=== PATIENT | female | born 1990 | race Caucasian/White ===

== ENCOUNTER 2018-08-09 23:31 | Emergency (ER) | payer SELFPAY ==
[2018-08-09] MEDS ORDERED: RINGERS SOLUTION,LACTATED 1,000 ML IV ONE (23:39)
[2018-08-09] MEDS ORDERED: HYDROMORPHONE HCL INJ/PF 2 MG/ML AMPULE IV PRN (23:39)
[2018-08-09] MEDS ORDERED: METOCLOPRAMIDE HCL INJ/PF 10 MG/2 ML SDV IV ONE (23:39)
--- NOTE | 2018-08-09 23:44 | ER Document Report ---
ED General - General Stated Complaint: EPIGASTRIC PAIN Time Seen by Provider: 08/09/18 23:39 Notes: Patient is a 27-year-old female without chronic medical problems, only prior surgical history is a 2 years ago who presents with an abrupt onset of severe generalized abdominal pain most localized to the epigastrium that started at approximately 10 PM tonight. Patient notes associated nausea and vomiting. She has no history of similar pain in the past. Nothing improves or worsens that pain. She states that she last ate approximately 5 hours prior to the onset of the pain without any discomfort of any kind. She denies any vaginal bleeding, vaginal discharge, no dysuria. Pain is described as a severe, throbbing, stabbing pain. - Related Data Allergies/Adverse Reactions: No Known Allergies Allergy (Verified 08/10/18 00:48) Past Medical History - General Information source: Patient - Social History Smoking Status: Never Smoker Frequency of alcohol use: None Drug Abuse: None Lives with: Spouse/Significant other Family History: Reviewed & Not Pertinent Review of Systems - Review of Systems Notes: Constitutional: Negative for fever. HENT: Negative for sore throat. Eyes: Negative for visual changes. Cardiovascular: Negative for chest pain. Respiratory: Negative for shortness of breath. Gastrointestinal: Positive for abdominal pain and vomiting Genitourinary: Negative for dysuria. Musculoskeletal: Negative for back pain. Skin: Negative for rash. Neurological: Negative for headaches, weakness or numbness. 10 point ROS negative except as marked above and in HPI. Physical Exam - Vital signs Vitals: Temp Pulse Resp BP Pulse Ox 98.0 F 88 20 132/93 H 96 08/09/18 23:35 08/09/18 23:35 08/09/18 23:35 08/09/18 23:35 08/09/18 23:35 Interpretation: Hypertensive, Tachypneic Notes: PHYSICAL EXAMINATION: GENERAL: Appears very uncomfortable, curled up in a ball and writhing in pain HEAD: Atraumatic, normocephalic. EYES: Pupils equal round and reactive to light, extraocular movements intact, sclera anicteric, conjunctiva are normal. ENT: nares patent, oropharynx clear without exudates. Moderately dry mucous membranes. NECK: Normal range of motion, supple without lymphadenopathy LUNGS: Breath sounds clear to auscultation bilaterally and equal. No wheezes rales or rhonchi. HEART: Regular rate and rhythm without murmurs ABDOMEN: Mild rigidity in the upper abdomen, mild diffuse tenderness most localized to the epigastrium, normoactive bowel sounds. EXTREMITIES: Normal range of motion, no pitting or edema. No cyanosis. NEUROLOGICAL: No focal neurological deficits. Moves all extremities spontaneously and on command. PSYCH: Moderately anxious SKIN: Warm, Dry, normal turgor, no rashes or lesions noted. Course - Re-evaluation Re-evalutation: 08/09/18 23:43 Patient presents with a somewhat concerning exam and history. She does have some diffuse rigidity and guarding in the upper abdomen although is globally tender. The patient does appear very unwell. Differential diagnosis includes acute pancreatitis, acute biliary pathology, acute bowel perforation. Will proceed with labs, given degree of pain will proceed directly to CT of the abdomen and pelvis with IV contrast as well as pain control. 08/10/18 01:30 CT abdomen pelvis is completely unremarkable with exception of a distended left colon. The patient's pain has now completely resolved. Her labs otherwise unremarkable. Repeat abdominal exam remains completely benign. At this point it appears that the patient had likely an acute colonic spasm with associated stool distention of her left hemicolon. This is based on otherwise completely reassuring workup and now having no pain of any kind as well as no pain on abdo joseph reassessment. I have advised MiraLAX at home. At this time will discharge with return precautions and follow-up recommendations. Verbal discharge instructions given a the bedside and opportunity for questions given. Medication warnings reviewed. Patient is in agreement with this plan and has verbalized understanding of return precautions and the need for primary care follow-up in the next 24-72 hours. - Vital Signs Vital signs: Temp Pulse Resp BP Pulse Ox 98.0 F 88 20 132/93 H 96 08/09/18 23:35 08/09/18 23:35 08/09/18 23:35 08/09/18 23:35 08/09/18 23:35 - Laboratory Result Diagrams: 08/10/18 00:00 08/10/18 00:00 - Diagnostic Test Radiology reviewed: Reports reviewed Discharge - Discharge Clinical Impression: Generalized abdominal pain Nausea and vomiting Qualifiers: Vomiting type: unspecified Vomiting Intractability: non-intractable Qualified Code(s): R11.2 - Nausea with vomiting, unspecified Constipation Qualifiers: Constipation type: unspecified constipation type Qualified Code(s): K59.00 - Constipation, unspecified Condition: Good Disposition: HOME, SELF-CARE Additional Instructions: You have been seen in the Emergency Department (ED) for abdominal pain. Your labs and CT scan are otherwise completely unremarkable today with the exception of significant constipation located in your left colon. I advised 1 capful of MiraLAX twice daily for the next 2 days to help reduce this constipation. Please follow up with your doctor as soon as possible regarding today's emergent visit and the symptoms that are bothering you. Return to the ED if your abdominal pain worsens or fails to improve, you develop bloody vomiting, bloody diarrhea, you are unable to tolerate fluids due to vomiting, fever greater than 101, or other symptoms that concern you.
[2018-08-10 00:11] LABS: ABSOLUTE LYMPHOCYTES (AUTO) 1.2 10^3/uL (0.5-4.7); ABSOLUTE MONOCYTES (AUTO) 0.5 10^3/uL (0.1-1.4); ABSOLUTE NEUT (AUTO) 5.8 10^3/uL (1.7-8.2); BASOPHILS % (AUTO) 0.3 % (0-2); EOSINOPHILS % (AUTO) 0.6 % (0-6); HEMATOCRIT 39.7 % (36.0-47.0); HEMOGLOBIN 13.5 g/dL (12.0-15.5); LYMPHOCYTES % (AUTO) 16.3 % (13-45); MEAN CORPUSCULAR HEMOGLOBIN 28.8 pg (27.0-33.4); MEAN CORPUSCULAR HGB CONC 34.1 g/dL (32.0-36.0); MEAN CORPUSCULAR VOLUME 84 fl (80-97); PLATELET COUNT 158 10^3/uL (150-450); RED CELL DISTRIBUTION WIDTH 12.6 % (11.5-14.0); SEGMENTED NEUTROPHILS % (AUTO) 75.8 % (42-78); TOTAL CELLS COUNTED % (AUTO) 100 %; WHITE BLOOD COUNT 7.7 10^3/uL (4.0-10.5)
[2018-08-10 00:31] LABS: ALANINE AMINOTRANSFERASE 20 U/L (9-52); ALBUMIN 4.3 g/dL (3.5-5.0); ALKALINE PHOSPHATASE 63 U/L (38-126); ANION GAP 5 (5-19); ASPARTATE AMINO TRANSFERASE 28 U/L (14-36); BILIRUBIN,DIRECT 0.2 mg/dL (0.0-0.4); BILIRUBIN,TOTAL 0.4 mg/dL (0.2-1.3); BLOOD UREA NITROGEN 19 mg/dL (7-20); CARBON DIOXIDE 26 mmol/L (22-30); CHLORIDE 107 mmol/L (98-107); GLUCOSE 104 mg/dL (75-110); LIPASE 100.8 U/L (23-300); SODIUM 137.9 mmol/L (137-145); TOTAL PROTEIN 7.1 g/dL (6.3-8.2)
[2018-08-10 00:33] LABS: POTASSIUM 3.9 mmol/L (3.6-5.0)
--- NOTE | 2018-08-10 01:08 | RADIOLOGY REPORT (SQ) ---
EXAM DESCRIPTION: CT ABDOMEN PELVIS WITH IV CONTRAST COMPLETED DATE/TME: 08/09/2018 23:40 CLINICAL HISTORY: 27 years, Female, generalized abdominal pain, guarding COMPARISON: None. TECHNIQUE: 372 Images stored on PACS. All CT scanners at this facility use dose modulation, iterative reconstruction, and/or weight based dosing when appropriate to reduce radiation dose to as low as reasonably achievable (ALARA). [facility]: Dose Right [facility]: CareDose [facility]: Dose Right [facility]: Teradose 4D [facility]: Smart Technologies LIMITATIONS: None. FINDINGS: Limited evaluation of the lung bases is unremarkable. Osseous structures are grossly intact. The liver, spleen, adrenal glands, pancreas, kidneys are unremarkable. The gallbladder is present. Large amount of stool in the colon. Normal appendix. IUD in place. No gross evidence for bowel obstruction. No free air or free fluid. Follicular change to the ovaries bilaterally. IMPRESSION: Abundant stool in the colon. Normal appendix. IUD in place TECHNICAL DOCUMENTATION: Quality ID # [id number]: Final reports with documentation of one or more dose reduction techniques (e.g., Automated exposure control, adjustment of the mA and/or kV according to patient size, use of iterative reconstruction technique) copyright 2010 [employer]- All Rights Reserved
[2018-08-10 01:30] VITALS: BP 123/58
== END 2018-08-10 01:57 | disposition home or self-care (01) ==
LOC: ER 23:31
DX: K59.00 Constipation, unspecified (principal); R10.84 Generalized abdominal pain; R11.2 Nausea with vomiting, unspecified
CPT/HCPCS: 99284; 96361; 96374; 96375; 36415; 83605; 83690; 84703; 85025; 80053; 74177; J2765; J1170; J7120

== ENCOUNTER 2019-08-25 15:38 | Emergency (ER) | payer MEDICAID ==
[2019-08-25] MEDS ORDERED: NORMAL SALINE 1000 ML 1,000 ML IV ONE (16:58)
--- NOTE | 2019-08-25 16:58 | ER Document Report ---
ED Medical Screen (RME) - General Chief Complaint: Nausea/Vomiting Stated Complaint: FLU LIKE SYMPTOMS Time Seen by Provider: 08/25/19 16:49 Notes: HPI: 28-year-old female who is 24 weeks presenting to the emergency department complaining of 3 to 4 days of fever, dry cough, significant sinus congestion, mild sore throat. States she began having vomiting yesterday and continues with nausea today. Patient has been complaining of some Calos Stahl type contractions but has not had vaginal discharge or bleeding. Patient states that she was trying to see her OB about symptoms but was unable to get into the office today. Denies abdominal pain otherwise. Patient states that she does have a facial headache. I have greeted and performed a rapid initial assessment of this patient. A comprehensive ED assessment and evaluation of the patient, analysis of test results and completion of the medical decision making process will be conducted by additional ED providers PHYSICAL EXAMINATION: GENERAL: Well-appearing, well-nourished and in mild acute distress. HEAD: Atraumatic, normocephalic. EYES: sclera anicteric, conjunctiva are normal. ENT: Moist mucous membranes. Mild pharyngeal erythema without exudate. Mild tenderness over the bilateral maxillary sinuses without erythema. Clear rhinorrhea NECK: Normal range of motion LUNGS: Normal work of breathing, lung sounds are clear to auscultation HEART: 2+ radial pulses bilaterally, tachycardic ABD: limited by positioning for exam in triage. No abdominal pain on palpation. Gravid uterus palpable EXTREMITIES: no pitting or edema. No cyanosis. NEUROLOGICAL: No focal neurological deficits. Moves all extremities spontaneously and on command. PSYCH: Normal mood, normal affect. SKIN: Warm, Dry, normal turgor, no rashes or lesions noted. TRAVEL OUTSIDE OF THE [place] IN LAST 30 DAYS: No - Related Data Allergies/Adverse Reactions: No Known Allergies Allergy (Verified 08/10/18 00:48) Home Medications: Past Medical History - Social History Chew tobacco use (# tins/day): No Frequency of alcohol use: None Drug Abuse: None Renal/ Medical History: Denies: Hx Peritoneal Dialysis Past Surgical History: Reports: Hx Section Physical Exam - Vital signs Vitals: Temp Pulse Resp BP Pulse Ox 98.5 F 126 H 20 105/63 100 08/25/19 15:45 08/25/19 15:45 08/25/19 15:45 08/25/19 15:45 08/25/19 15:45 Course - Vital Signs Vital signs: Temp Pulse Resp BP Pulse Ox 98.5 F 126 H 20 105/63 100 08/25/19 15:45 08/25/19 15:45 08/25/19 15:45 08/25/19 15:45 08/25/19 15:45
[2019-08-25] MEDS ORDERED: METOCLOPRAMIDE HCL INJ/PF 10 MG/2 ML SDV IV ONE (16:59)
--- NOTE | 2019-08-25 17:58 | ER Document Report ---
ED GI/ - General Chief Complaint: Nausea/Vomiting Stated Complaint: FLU LIKE SYMPTOMS Time Seen by Provider: 08/25/19 16:49 Primary Care Provider: RHEA WADE MD [Primary Care Provider] - Follow up as needed Mode of Arrival: Ambulatory Information source: Patient Notes: Patient has had a 2-day history of nausea and vomiting. Patient is 24 weeks . Also has developed fever and a sore throat with a runny nose in the past 36 hours. Denies any diarrhea. Patient has complained of some uterine cramps similar to Calos Stahl. Patient states there is been no vaginal bleeding or any vaginal discharge or water break at this time. Patient is a healthy 4 para 4 AB 1 subject. Denies having flu vaccine this season. Denies any known exposure to anyone with the flu. There is been no hematemesis coffee-ground emesis. TRAVEL OUTSIDE OF THE [place] IN LAST 30 DAYS: No - HPI Patient complains to provider of: , Vomiting, Other - Mild cramping abdominal pain. Onset: Other - A few days ago Timing/Duration: Gradual Quality of pain: Achy Severity at maximum: Moderate Severity in ED: Moderate Pain Level: 3 Context: , Other - Illness with fever nausea and vomiting body aches sore throat Vaginal bleeding (Compared to normal period): None : 4 Para: 4 Abortions: 1 vitamins taken: Yes Associated symptoms: Nausea, Vomiting Exacerbated by: Food Similar symptoms previously: No Recently seen / treated by doctor: No - Related Data Allergies/Adverse Reactions: No Known Allergies Allergy (Verified 08/10/18 00:48) Home Medications: Past Medical History - Social History Smoking Status: Never Smoker Cigarette use (# per day): No Chew tobacco use (# tins/day): No Frequency of alcohol use: None Drug Abuse: None Lives with: Family Family History: Reviewed & Not Pertinent Patient has suicidal ideation: No Patient has homicidal ideation: No Renal/ Medical History: Denies: Hx Peritoneal Dialysis Past Surgical History: Reports: Hx Section Review of Systems - Review of Systems Constitutional: Chills, Fever, Weakness EENT: Sinus pressure Cardiovascular: Lightheaded Respiratory: No symptoms reported Gastrointestinal: Vomiting Musculoskeletal: Other - Body aches -: Yes All other systems reviewed and negative Physical Exam - Vital signs Vitals: Temp Pulse Resp BP Pulse Ox 98.5 F 126 H 20 105/63 100 08/25/19 15:45 08/25/19 15:45 08/25/19 15:45 08/25/19 15:45 08/25/19 15:45 Interpretation: Normal - General General appearance: Appears well, Alert - HEENT Head: Normocephalic, Atraumatic Eyes: Normal Pupils: PERRL Tympanic membrane: Serous effusion Sinus: Maxillary, Tenderness Nasal: Clear rhinorrhea Pharynx: Erythema Neck: Normal - Respiratory Respiratory status: No respiratory distress Chest status: Nontender Breath sounds: Normal Chest palpation: Normal - Cardiovascular Rhythm: Regular Heart sounds: Normal auscultation Murmur: No - Abdominal Inspection: Normal Distension: No distension Bowel sounds: Normal Tenderness: Nontender Organomegaly: No organomegaly, Other - Gravid uterus, no contractions palpated on exam. - Back Back: Normal, Nontender - Extremities General upper extremity: Normal inspection, Nontender, Normal color, Normal ROM, Normal temperature General lower extremity: Normal inspection, Nontender, Normal color, Normal ROM, Normal temperature, Normal weight bearing. No: Tracy's sign - Neurological Neuro grossly intact: Yes Cognition: Normal Orientation: AAOx4 Sabrina Coma Scale Eye Opening: Spontaneous Sabrina Coma Scale Verbal: Oriented Sabrina Coma Scale Motor: Obeys Commands [place] Coma Scale Total: 15 Speech: Normal Motor strength normal: LUE, RUE, LLE, RLE Sensory: Normal - Psychological Associated symptoms: Normal affect, Normal mood - Skin Skin Temperature: Warm Skin Moisture: Dry Skin Color: Normal Course - Re-evaluation Re-evalutation: 08/25/19 20:08 Patient resting comfortably, and showing no signs of distress at this time skin color is pink and vibrant. Has received 2 L of IV fluids and is taking p.o. well at this time. And patient had drank apple juice and ate some crackers. Patient denies any urinary symptoms although there is some white blood cells noted in the urinalysis. We will not treat as a urinary tract infection inasmuch as she has no symptoms. Will begin on antibiotics because of sinusitis noted on exam. Patient does not have influenza a or B. heart tones were within normal limits and patient no longer has any uterine cramps at this time. It is medically stable and ready for discharge. - Vital Signs Vital signs: Temp Pulse Resp BP Pulse Ox 98.5 F 126 H 20 105/63 100 08/25/19 15:45 08/25/19 15:45 08/25/19 15:45 08/25/19 15:45 08/25/19 15:45 - Laboratory Result Diagrams: 08/25/19 18:00 08/25/19 18:00 Laboratory results interpreted by me: 08/25/19 08/25/19 08/25/19 17:35 18:00 18:00 WBC 12.6 H Lymph % (Auto) 8.5 L Absolute Neuts (auto) 10.5 H Seg Neutrophils % 83.5 H Sodium 134.7 L Creatinine 0.49 L Urine Protein 100 H Urine Ketones 80 H Urine Urobilinogen 2.0 H Ur Leukocyte Esterase MODERATE H Urine Ascorbic Acid 40 H Discharge - Discharge Clinical Impression: Upper respiratory infection of multiple sites, Sinusitis chronic, frontal Condition: Stable Disposition: HOME, SELF-CARE Instructions: Acetaminophen, Upper Respiratory Illness ([facility]), Fever ([facility]) Additional Instructions: Sinusitis You have sinusitis, an infection of the sinus cavities of the face. The sinuses are air-filled chambers which open into the inside of the nose. Bacteria and pus fill a sinus, causing pain, drainage, and fever. Sinusitis is treated with antibiotics. Often, expectorants (to thin the sinus mucous) or decongestants (to reduce swelling) are prescribed as well. Healing requires seven to 10 days. Avoid chemical fumes, pollens, dusts, and smoke (especially cigarette smoke). Keep the air humidified in your bedroom and work area and take plenty of liquids by mouth. This condition can be serious if the infection spreads. If your symptoms worsen, or if you develop severe headache, high fever, stiff neck, or a rash, you must call the doctor or return for re-evaluation. You are . care is best started as early in as possible. If you're unsure about continuing this , you should discuss this with your physician or with bridal consultant at [facility]. You should take only medications approved by your physician. Acetaminophen can safely be taken for minor pains. As a rule, medication for chronic con ditions such as asthma or seizures can safely be continued. You should discuss with the physician every medicine you take. Any regular exercise program can be continued. Talk to your physician, however, before engaging in competitive or demanding sports. Alcohol, smoking, and "street drugs" are dangerous to your baby. Cocaine is especially dangerous. Don't use any illicit drugs! Follow-up with OB operations manager station within 1 to 2 days. Prescriptions: Cephalexin Monohydrate [Keflex 500 mg Capsule] 500 mg PO Q8H 7 Days #21 capsule Ondansetron [Zofran Odt 4 mg Tablet] 1 - 2 tab PO Q6H #15 tab.rapdis Referrals: RHEA WADE MD [Primary Care Provider] - Follow up as needed
[2019-08-25 18:07] LABS: APPEARANCE,URINE SLIGHTLY-CLOUDY; BILIRUBIN,URINE NEGATIVE (NEGATIVE); COLOR,URINE AMBER; GLUCOSE, URINE NEGATIVE (NEGATIVE); KETONES,URINE 80 mg/dL (NEGATIVE); LEUKOCYTE ESTERASE,URINE MODERATE (NEGATIVE); NITRITE,URINE NEGATIVE (NEGATIVE); PROTEIN,URINE 100 mg/dL (NEGATIVE); URINE SPECIFIC GRAVITY 1.029
[2019-08-25] MEDS ORDERED: RINGERS SOLUTION,LACTATED 1,000 ML IV ONE (18:18)
[2019-08-25 18:37] LABS: A TYPE INFLUENZA AG NEGATIVE (NEGATIVE); B INFLUENZA AG NEGATIVE (NEGATIVE)
[2019-08-25 18:38] LABS: ABSOLUTE LYMPHOCYTES (AUTO) 1.1 10^3/uL (0.5-4.7); ABSOLUTE MONOCYTES (AUTO) 0.9 10^3/uL (0.1-1.4); ABSOLUTE NEUT (AUTO) 10.5 10^3/uL (1.7-8.2); BASOPHILS % (AUTO) 0.3 % (0-2); EOSINOPHILS % (AUTO) 0.3 % (0-6); HEMATOCRIT 38.1 % (36.0-47.0); HEMOGLOBIN 13.6 g/dL (12.0-15.5); LYMPHOCYTES % (AUTO) 8.5 % (13-45); MEAN CORPUSCULAR HEMOGLOBIN 30.1 pg (27.0-33.4); MEAN CORPUSCULAR HGB CONC 35.7 g/dL (32.0-36.0); MEAN CORPUSCULAR VOLUME 84 fl (80-97); MONOCYTES % (AUTO) 7.4 % (3-13); PLATELET COUNT 165 10^3/uL (150-450); RED BLOOD COUNT 4.53 10^6/uL (3.72-5.28); RED CELL DISTRIBUTION WIDTH 12.9 % (11.5-14.0); SEGMENTED NEUTROPHILS % (AUTO) 83.5 % (42-78); TOTAL CELLS COUNTED % (AUTO) 100 %; WHITE BLOOD COUNT 12.6 10^3/uL (4.0-10.5)
[2019-08-25 18:58] LABS: ANION GAP 9 (5-19); BLOOD UREA NITROGEN 11 mg/dL (7-20); CALCIUM 8.6 mg/dL (8.4-10.2); CARBON DIOXIDE 23 mmol/L (22-30); CHLORIDE 103 mmol/L (98-107); GLUCOSE 77 mg/dL (75-110); POTASSIUM 3.6 mmol/L (3.6-5.0)
[2019-08-25] MEDS ORDERED: ACETAMINOPHEN 325 MG TABLET PO ONE (19:12)
[2019-08-25] MEDS ORDERED: CEPHALEXIN 500 MG CAPSULE PO ONE (20:10)
[2019-08-25 20:40] VITALS: BP 125/72
== END 2019-08-25 20:40 | disposition home or self-care (01) ==
LOC: ER 15:38
DX: O26.92 Pregnancy related conditions, unspecified, second trimester (principal); J06.9 Acute upper respiratory infection, unspecified; J32.1 Chronic frontal sinusitis; R11.2 Nausea with vomiting, unspecified; Z3A.24 24 weeks gestation of pregnancy
CPT/HCPCS: 99284; 96361; 96374; 36415; 85025; 80048; 81001; 87804; J3490; J2765; J7030; J7120

== ENCOUNTER 2019-09-01 17:35 | Outpatient (CLI) | payer MEDICAID ==
[2019-09-01 18:45] LABS: APPEARANCE,URINE CLEAR; BILIRUBIN,URINE NEGATIVE (NEGATIVE); COLOR,URINE YELLOW; GLUCOSE, URINE NEGATIVE (NEGATIVE); KETONES,URINE 80 mg/dL (NEGATIVE); LEUKOCYTE ESTERASE,URINE NEGATIVE (NEGATIVE); NITRITE,URINE NEGATIVE (NEGATIVE); PROTEIN,URINE NEGATIVE (NEGATIVE); URINE SPECIFIC GRAVITY 1.024; UROBILINOGEN,URINE NEGATIVE mg/dL (<2.0)
[2019-09-01 19:00] LABS: URINE AMPHETAMINES SCREEN NEGATIVE; URINE BARBITURATES SCREEN NEGATIVE; URINE BENZODIAZEPINES SCREEN NEGATIVE; URINE COCAINE SCREEN NEGATIVE; URINE MARIJUANA (THC) SCREEN NEGATIVE; URINE METHADONE SCREEN NEGATIVE; URINE PHENCYCLIDINE SCREEN NEGATIVE
--- NOTE | 2019-09-01 21:25 | RADIOLOGY REPORT (SQ) ---
EXAM DESCRIPTION: RadLex: US LIMITED CLINICAL HISTORY: 28 years Female; R/O PTL; EGA by dates: 25 weeks 4 days TECHNIQUE: Transabdominal limited obstetrical ultrasound was performed. COMPARISON: None. FINDINGS: Number of fetuses: Single position: Breech measurements were not performed on this exam. HR: 157 BPM Anatomy: Not fully evaluated Amniotic fluid: GAVIN 11.5 cm, adequate. Clear. Cervix: 4 cm, closed Placenta: Posterior. No hematoma. No previa. IMPRESSION: 1. Single viable IUP. No acute findings.
== END 2019-09-01 20:54 | disposition home or self-care (01) ==
LOC: LC 17:35
PROVIDERS: ATTEND Obstetrics & Gynecology
PROC: 4A1HXCZ Monitoring of Products of Conception, Cardiac Rate, External Approach (ICD-10-PCS; principal; 2019-09-01)
DX: O21.0 Mild hyperemesis gravidarum (principal); Z3A.25 25 weeks gestation of pregnancy
CPT/HCPCS: 76815; 80307; 81001

== ENCOUNTER 2019-09-07 10:59 | Outpatient (CLI) | payer MEDICAID ==
[2019-09-07 12:35] LABS: AMORPHOUS SEDIMENT,URINE TRACE /HPF; APPEARANCE,URINE CLOUDY; BILIRUBIN,URINE NEGATIVE (NEGATIVE); COLOR,URINE YELLOW; GLUCOSE, URINE NEGATIVE (NEGATIVE); KETONES,URINE TRACE mg/dL (NEGATIVE); LEUKOCYTE ESTERASE,URINE NEGATIVE (NEGATIVE); NITRITE,URINE NEGATIVE (NEGATIVE); PROTEIN,URINE 30 mg/dL (NEGATIVE); UROBILINOGEN,URINE NEGATIVE mg/dL (<2.0)
[2019-09-07 12:43] LABS: URINE AMPHETAMINES SCREEN NEGATIVE; URINE BARBITURATES SCREEN NEGATIVE; URINE BENZODIAZEPINES SCREEN NEGATIVE; URINE COCAINE SCREEN NEGATIVE; URINE MARIJUANA (THC) SCREEN NEGATIVE; URINE METHADONE SCREEN NEGATIVE; URINE PHENCYCLIDINE SCREEN NEGATIVE
--- NOTE | 2019-09-07 12:43 | RADIOLOGY REPORT (SQ) ---
EXAM DESCRIPTION: U/S OB LIMITED COMPLETED DATE/TIME: 09/07/2019 12:08 pm REASON FOR STUDY: cervical length, rule out abruption, placenta COMPARISON: None. TECHNIQUE: Limited transvaginal grayscale ultrasound for evaluation of specific requested obstetrica l parameters. LIMITATIONS: None. FINDINGS: CERVICAL LENGTH: 4.0 cm. Closed. GAVIN: 5.9 cm. FHR: 152 beats per minute. PRESENTATION: Cephalic. PLACENTA: Posterior. No abruption. ANATOMY: Not assessed OTHER: No other significant findings. IMPRESSION: LIMITED OBSTETRICAL ULTRASOUND WITH MEASURED PARAMETERS DELINEATED ABOVE. Trimester of : Second trimester - 13 weeks 1 day to 27 weeks 6 days. TECHNICAL DOCUMENTATION: JOB ID: [id number] [employer]- All Rights Reserved Reading location - IP/workstation name: [email or web address]
--- NOTE | 2019-09-07 12:44 | RADIOLOGY REPORT (SQ) ---
EXAM DESCRIPTION: U/S RETROPERITON (RENAL/AORTA) COMPLETED DATE/TIME: 09/07/2019 12:32 pm REASON FOR STUDY: kidney, ureters, abdominal pain unknown orgin COMPARISON: None. TECHNIQUE: Dynamic and static grayscale images acquired of the kidneys and bladder and recorded on P ACS. Additional selected color Doppler and spectral images recorded. LIMITATIONS: None. FINDINGS: RIGHT KIDNEY: Normal size. Normal echogenicity. No solid or suspicious masses. No h ydronephrosis. No calcifications. LEFT KIDNEY: Normal size. Normal echogenicity. No solid or suspicious masses. No hydronephrosi s. No calcifications. BLADDER: Not visualized. OTHER FINDINGS: No other significant finding. IMPRESSION: NORMAL RENAL ULTRASOUND. COMMENT: The degree of renal pelvocalyceal dilation is correlated with the patient's current stage o f . TECHNICAL DOCUMENTATION: JOB ID: [id number] [employer]- All Rights Reserved Reading location - IP/workstation name: [email or web address]
[2019-09-07] MEDS ORDERED: RINGERS SOLUTION,LACTATED 1,000 ML IV PRN (12:47)
[2019-09-07] MEDS ORDERED: ONDANSETRON HCL INJ/PF 4 MG/2 ML SDV IV ONE (12:47)
[2019-09-07] MEDS ORDERED: ONDANSETRON HCL INJ/PF 4 MG/2 ML SDV ONE (12:49)
[2019-09-07 13:04] LABS: ABSOLUTE BASOPHILS # (AUTO) 0.1 10^3/uL (0.0-0.2); ABSOLUTE MONOCYTES (AUTO) 0.6 10^3/uL (0.1-1.4); ABSOLUTE NEUT (AUTO) 9.9 10^3/uL (1.7-8.2); BASOPHILS % (AUTO) 0.5 % (0-2); EOSINOPHILS % (AUTO) 0.1 % (0-6); HEMATOCRIT 40.1 % (36.0-47.0); HEMOGLOBIN 14.2 g/dL (12.0-15.5); LYMPHOCYTES % (AUTO) 8.6 % (13-45); MEAN CORPUSCULAR HEMOGLOBIN 29.9 pg (27.0-33.4); MEAN CORPUSCULAR HGB CONC 35.4 g/dL (32.0-36.0); MEAN CORPUSCULAR VOLUME 84 fl (80-97); MONOCYTES % (AUTO) 5.1 % (3-13); PLATELET COUNT 206 10^3/uL (150-450); RED BLOOD COUNT 4.76 10^6/uL (3.72-5.28); RED CELL DISTRIBUTION WIDTH 12.3 % (11.5-14.0); SEGMENTED NEUTROPHILS % (AUTO) 85.7 % (42-78); TOTAL CELLS COUNTED % (AUTO) 100 %; WHITE BLOOD COUNT 11.5 10^3/uL (4.0-10.5)
[2019-09-07] MEDS ORDERED: LOPERAMIDE HCL 2 MG CAPSULE PO ONE (13:05)
[2019-09-07] MEDS ORDERED: HYDROMORPHONE HCL INJ/PF 2 MG/ML AMPULE IV ONE (13:06)
[2019-09-07] MEDS ORDERED: LOPERAMIDE HCL 2 MG CAPSULE ONE (13:08)
[2019-09-07] MEDS ORDERED: HYDROMORPHONE HCL 2 MG TABLET ONE (13:08)
[2019-09-07] MEDS ORDERED: HYDROMORPHONE HCL INJ/PF 2 MG/ML AMPULE ONE (13:09)
[2019-09-07 13:13] LABS: ALBUMIN 3.6 g/dL (3.5-5.0); ALKALINE PHOSPHATASE 80 U/L (38-126); AMYLASE 68 U/L (30-110); ANION GAP 8 (5-19); ASPARTATE AMINO TRANSFERASE 20 U/L (14-36); BILIRUBIN,TOTAL 0.4 mg/dL (0.2-1.3); BLOOD UREA NITROGEN 8 mg/dL (7-20); CALCIUM 8.9 mg/dL (8.4-10.2); CARBON DIOXIDE 22 mmol/L (22-30); CHLORIDE 104 mmol/L (98-107); GLUCOSE 81 mg/dL (75-110); POTASSIUM 3.9 mmol/L (3.6-5.0); TOTAL PROTEIN 6.6 g/dL (6.3-8.2)
== END 2019-09-07 15:50 | disposition home or self-care (01) ==
LOC: LC 10:59
PROVIDERS: ATTEND Obstetrics & Gynecology Gynecology
PROC: 4A1HXCZ Monitoring of Products of Conception, Cardiac Rate, External Approach (ICD-10-PCS; principal; 2019-09-07)
DX: O47.02 False labor before 37 completed weeks of gestation, second trimester (principal); O99.282 Endocrine, nutritional and metabolic diseases complicating pregnancy, second trimester; E86.0 Dehydration; O26.892 Other specified pregnancy related conditions, second trimester; M54.9 Dorsalgia, unspecified; R10.9 Unspecified abdominal pain; Z3A.26 26 weeks gestation of pregnancy
CPT/HCPCS: 59899; 36415; 82150; 83690; 85025; 80053; 81001; 80307; 76770; 76815; J3490; J1170; J2405

== ENCOUNTER 2019-09-07 20:18 | Emergency (ER) | payer MEDICAID ==
--- NOTE | 2019-09-07 21:22 | ER Document Report ---
ED Medical Screen (RME) - General Chief Complaint: Abdominal Pain Stated Complaint: ABDOMINAL AND BACK PAIN-26 WEEKS Time Seen by Provider: 09/07/19 21:11 Primary Care Provider: RHEA WADE MD [Primary Care Provider] - Follow up as needed Mode of Arrival: Wheelchair Information source: Patient Notes: This 28-year-old female G4, P3 approximately 26 weeks presents emergency department with severe abdominal pain. She reports it started at approximately 2300 last night. She describes it as a sharp pain that is constant with nausea and vomiting. She complains of the pain to the epigastric area right lower quad right upper quad. She was evaluated in L&D earlier today. They ruled out labor. I contacted Dr. Goldman. He reports that the ultrasound w as fine he also did ultrasound the kidneys which were fine. He reports he told the patient that they would bring her down to the emergency department to be evaluated but patient did not want that. She just left. He reports he did give her Dilaudid for pain. I have greeted and performed a rapid initial assessment of this patient. A comprehensive ED assessment and evaluation of the patient, analysis of test results and completion of the medical decision making process will be conducted by additional ED providers. TRAVEL OUTSIDE OF THE [place] IN LAST 30 DAYS: No - Related Data Allergies/Adverse Reactions: No Known Allergies Allergy (Verified 09/01/19 17:45) Home Medications: vitamins. colace Past Medical History - Social History Chew tobacco use (# tins/day): No Frequency of alcohol use: None Drug Abuse: None Renal/ Medical History: Denies: Hx Peritoneal Dialysis Past Surgical History: Reports: Hx Section Physical Exam - Vital signs Vitals: Temp Pulse Resp BP Pulse Ox 97.8 F 111 H 18 129/74 H 99 09/07/19 20:32 09/07/19 20:32 09/07/19 20:32 09/07/19 20:32 09/07/19 20:32 Course - Vital Signs Vital signs: Temp Pulse Resp BP Pulse Ox 97.8 F 111 H 18 129/74 H 99 09/07/19 20:32 09/07/19 20:32 09/07/19 20:32 09/07/19 20:32 09/07/19 20:32 Doctor's Discharge - Discharge Referrals: RHEA WADE MD [Primary Care Provider] - Follow up as needed
[2019-09-07] MEDS ORDERED: RINGERS SOLUTION,LACTATED 1,000 ML IV ONE (21:24)
[2019-09-07] MEDS ORDERED: METOCLOPRAMIDE HCL INJ/PF 10 MG/2 ML SDV IV ONE (21:24)
[2019-09-07 22:04] LABS: HEMATOCRIT 42.4 % (36.0-47.0); HEMOGLOBIN 14.7 g/dL (12.0-15.5); MEAN CORPUSCULAR HEMOGLOBIN 29.1 pg (27.0-33.4); MEAN CORPUSCULAR HGB CONC 34.6 g/dL (32.0-36.0); MEAN CORPUSCULAR VOLUME 84 fl (80-97); PLATELET COUNT 216 10^3/uL (150-450); RED BLOOD COUNT 5.05 10^6/uL (3.72-5.28); RED CELL DISTRIBUTION WIDTH 12.4 % (11.5-14.0); WHITE BLOOD COUNT 19.8 10^3/uL (4.0-10.5)
[2019-09-07 22:18] LABS: ALBUMIN 3.8 g/dL (3.5-5.0); ALKALINE PHOSPHATASE 91 U/L (38-126); ANION GAP 11 (5-19); ASPARTATE AMINO TRANSFERASE 23 U/L (14-36); BILIRUBIN,TOTAL 0.8 mg/dL (0.2-1.3); BLOOD UREA NITROGEN 8 mg/dL (7-20); CALCIUM 9.1 mg/dL (8.4-10.2); CARBON DIOXIDE 20 mmol/L (22-30); CHLORIDE 103 mmol/L (98-107); GLUCOSE 85 mg/dL (75-110); POTASSIUM 4.1 mmol/L (3.6-5.0)
[2019-09-07 22:27] LABS: ABSOLUTE LYMPHOCYTES# (MANUAL) 0.6 10^3/uL (0.5-4.7); ABSOLUTE MONOCYTES # (MANUAL) 0.2 10^3/uL (0.1-1.4); BASOPHILS % (MANUAL) 0 % (0-2); EOSINOPHILS % (MANUAL) 0 % (0-6); LYMPHOCYTES % (MANUAL) 3 % (13-45); MONOCYTES % (MANUAL) 1 % (3-13); PLATELET COMMENT ADEQUATE; RBC MORPHOLOGY COMMENT NORMO-CYTIC/CHROMIC; SEGMENTED NEUTROPHILS % (MAN) 96 % (42-78); TOTAL CELLS COUNTED 100
[2019-09-07] MEDS ORDERED: HYDROMORPHONE HCL INJ/PF 2 MG/ML AMPULE IV ONE (22:40)
[2019-09-07] MEDS ORDERED: ONDANSETRON HCL INJ/PF 4 MG/2 ML SDV IV ONE (22:40)
--- NOTE | 2019-09-07 23:05 | RADIOLOGY REPORT (SQ) ---
EXAM DESCRIPTION: US ABDOMEN LIMITED COMPLETED DATE/TME: 09/07/2019 21:20 CLINICAL HISTORY: abd pain n/v COMPARISON: None. TECHNIQUE: Real-time sonographic images of the right upper abdomen were obtained using a curved multihertz transducer. FINDINGS: Pancreas: The visualized portions of the pancreas are unremarkable. Vascular: The visualized portions of the aorta and IVC are unremarkable. Liver: The liver has normal contour and echogenicity. Hepatopedal flow in the portal vein. Findings confirmed with color and spectral Doppler imaging. The common bile duct measures 0.3 cm. Gallbladder: The gallbladder has a normal appearance. No gallstones identified. No wall thickening or pericholecystic fluid. Right Kidney: The right kidney measures 11.6 cm in length. No hydronephrosis, solid renal mass, or shadowing calculi. IMPRESSION: 1. No sonographic in the right upper abdomen.
--- NOTE | 2019-09-07 23:05 | RADIOLOGY REPORT (SQ) ---
EXAM DESCRIPTION: US ABDOMEN LIMITED COMPLETED DATE/TME: 09/07/2019 21:15 CLINICAL HISTORY: 28 years, Female, review appendix COMPARISON: None. TECHNIQUE: Limited ultrasound of the right lower quadrant LIMITATIONS: None. FINDINGS: The appendix is not definitively visualized. No abnormal fluid collections or soft tissue masses. No free fluid. IMPRESSION: Appendix not visualized. No abnormal fluid collections or free fluid copyright 2010 [employer]- All Rights Reserved
--- NOTE | 2019-09-07 23:09 | ER Document Report ---
Entered by BARBARA RAMSEY SCRIBE 09/07/19 9230 Acting as scribe for:LASHELL HOLLINGSWORTH IV, MD ED GI/ - General Chief Complaint: Abdominal Pain Stated Complaint: ABDOMINAL AND BACK PAIN-26 WEEKS Time Seen by Provider: 09/07/19 21:11 Primary Care Provider: RHEA WADE MD [ACTIVE STAFF] - Follow up as needed Mode of Arrival: Wheelchair Information source: Patient Notes: This 28 year old female G4, P3 approximately x26 weeks patient presents to the ED today with complaints of severe RLQ and upper abdominal pain that began around 2300 last night. Patient describes the pain as sharp and stabbing. Patient states that the pain is exacerbated when she lifts her leg. Patient also report chills, nausea, vomiting, diarrhea, left arm numbness, and back pain. Patient was evaluated in L&D this morning at 1000 for a labor check and an obstetrics and renal ultrasound were done showing no concerning results. Patient was told to go the ED for further evaluation, but the patient decided to leave and was discharged around 1600. Patient was given Dilaudid for pain from Dr. Goldman. Patient states that the pain returned after she went home, so she decided to come to the ED. TRAVEL OUTSIDE OF THE [place] IN LAST 30 DAYS: No - Related Data Allergies/Adverse Reactions: No Known Allergies Allergy (Verified 09/01/19 17:45) Home Medications: vitamins. colace Past Medical History - General Information source: Patient - Social History Smoking Status: Never Smoker Cigarette use (# per day): No Chew tobacco use (# tins/day): No Smoking Education Provided: No Frequency of alcohol use: None Drug Abuse: None Family History: Reviewed & Not Pertinent Patient has suicidal ideation: No Patient has homicidal ideation: No Past Surgical History: Reports: Hx Section Review of Systems - Review of Systems Constitutional: See HPI, Chills. denies: Fever EENT: No symptoms reported Cardiovascular: No symptoms reported Respiratory: No symptoms reported Gastrointestinal: See HPI, Abdominal pain, Diarrhea, Nausea, Vomiting Genitourinary: No symptoms reported Female Genitourinary: - x26 weeks Musculoskeletal: See HPI, Back pain, Other - Left arm numbness Skin: No symptoms reported Hematologic/Lymphatic: No symptoms reported Neurological/Psychological: No symptoms reported -: Yes All other systems reviewed and negative Physical Exam - Vital signs Vitals: Temp Pulse Resp BP Pulse Ox 97.8 F 111 H 16 129/74 H 99 09/07/19 20:29 09/07/19 20:29 09/07/19 20:29 09/07/19 20:29 09/07/19 20:29 - General General appearance: Other - Tearful In distress: Mild - HEENT Head: Normocephalic, Atraumatic Eyes: Normal Pupils: PERRL - Respiratory Respiratory status: No respiratory distress Chest status: Nontender Breath sounds: Normal Chest palpation: Normal - Cardiovascular Rhythm: Regular Heart sounds: Normal auscultation Murmur: No - Abdominal Inspection: Gravid female Distension: Distended Bowel sounds: Normal Tenderness: McBurney's point, Other - Positive Psoas sign Organomegaly: No organomegaly - Back Back: Normal, Nontender - Extremities General upper extremity: Normal inspection General lower extremity: Normal inspection - Neurological Neuro grossly intact: Yes - Psychological Associated symptoms: Tearful - Skin Skin Temperature: Warm Skin Moisture: Dry Skin Color: Normal Course - Re-evaluation Re-evalutation: 09/08/19 02:49 Transport has arrived to take the patient to [facility]. This MD went to the bedside to check on the patient just prior to her leaving this facility. Patient is still having some pain but is not in any acute distress at this point. - Vital Signs Vital signs: Temp Pulse Resp BP Pulse Ox 98.2 F 100 20 124/83 98 09/08/19 02:01 09/08/19 00:42 09/08/19 00:42 09/08/19 02:01 09/08/19 02:01 - Laboratory Result Diagrams: 09/07/19 21:51 09/07/19 21:51 Laboratory results interpreted by me: 09/07/19 09/07/19 09/07/19 21:51 21:51 22:35 WBC 19.8 H Seg Neuts % (Manual) 96 H Lymphocytes % (Manual) 3 L Monocytes % (Manual) 1 L Abs Neuts (Manual) 19.0 H Sodium 133.9 L Carbon Dioxide 20 L Creatinine 0.43 L Urine Protein 30 H Urine Ketones 80 H - Diagnostic Test Radiology reviewed: Reports reviewed - Consults DR. CONTRERAS, GENERAL SURGERY Time consulted: 00:50 - STATED PT WILL NEED TO BE TRANSFERRED TO FACILITY THAT HAS NICU CARE IN CASE OF PREMATURE DELIVERY, AGREED WITH INITIATING IV ANTIBIOTIC THERAPY Reason for consultation: 09/08/19 01:42 ACUTE APPENDICITIS, PT [address] JUAN DAVID OSHEA, GENERAL SURGEON, [facility] Time consulted: :20 - DR. OHSEA ACCEPTED PT FOR TRANSFER TO HIS FACILITY Reason for consultation: 09/08/19 01:43 ACUTE APPENDICITIS, PT 26 WEEKS , [facility] HAS NICU RESOURCES Discharge - Discharge Clinical Impression: Acute appendicitis complicating Condition: Good Disposition: [facility] Referrals: RHEA WADE MD [ACTIVE STAFF] - Follow up as needed I personally performed the services described in the documentation, reviewed and edited the documentation which was dictated to the scribe in my presence, and it accurately records my words and actions.
[2019-09-07 23:22] LABS: APPEARANCE,URINE CLEAR; BILIRUBIN,URINE NEGATIVE (NEGATIVE); COLOR,URINE YELLOW; GLUCOSE, URINE NEGATIVE (NEGATIVE); KETONES,URINE 80 mg/dL (NEGATIVE); LEUKOCYTE ESTERASE,URINE NEGATIVE (NEGATIVE); NITRITE,URINE NEGATIVE (NEGATIVE); PROTEIN,URINE 30 mg/dL (NEGATIVE); URINE SPECIFIC GRAVITY 1.023; UROBILINOGEN,URINE NEGATIVE mg/dL (<2.0)
[2019-09-08] MEDS ORDERED: HYDROMORPHONE HCL INJ/PF 2 MG/ML AMPULE IV ONE ×2 (00:23→02:48)
--- NOTE | 2019-09-08 00:30 | RADIOLOGY REPORT (SQ) ---
EXAM DESCRIPTION: CT ABDOMEN PELVIS WITH IV CONTRAST COMPLETED DATE/TME: 09/07/2019 23:17 CLINICAL HISTORY: RLQ PAIN, WBC 19.8, PT 26 WEEKS COMPARISON: 08/10/2018 TECHNIQUE: CT of the abdomen and pelvis performed following IV administration of 78 mL of Omnipaque 350. Dr. Lucas explained risks and benefits of ionizing radiation and contrast usage to patient prior to imaging. The patient is 26 weeks . FINDINGS: Lung Bases: The visualized lung bases are clear. Bones: No destructive bone lesions identified. Abdomen: Liver: The liver has normal size and density. No intrahepatic mass or biliary dilatation. Gallbladder: No calcified gallstones. Spleen, Pancreas, and Adrenal Glands: The spleen, pancreas, and adrenal glands are unremarkable. Kidneys: The kidneys have normal size without evidence of solid mass or hydronephrosis. Vasculature: The aorta and IVC have normal caliber and position. The portal vein is patent. The proximal visceral and renal arteries are patent. Stomach: The stomach and duodenum have normal course. Other: No free intraperitoneal air. No free fluid or lymphadenopathy. Pelvis: Bladder: Urinary bladder is unremarkable. Bowel: No dilated loops of large or small bowel. Appendix: Dilated appendix measuring 1.5 cm with periappendiceal inflammatory change. No well-circumscribed periappendiceal fluid collection. Pelvis: Gravid uterus with fetus identified. Correlation with ultrasound performed same day for further details. IMPRESSION: 1. Findings compatible with acute uncomplicated appendicitis. Urgent finding reported to Dr. Lucas at 09/07/2019 11:21 PM [employer] This exam was performed according to our departmental dose-optimization program, which includes automated exposure control, adjustment of the mA and/or kV according to patient size and/or use of iterative reconstruction technique.
[2019-09-08] MEDS ORDERED: PIPERACILLIN/TAZOBACTAM 3.375 GM VIAL IV ONE (00:53)
--- NOTE | 2019-09-08 01:10 | RADIOLOGY REPORT (SQ) ---
EXAM DESCRIPTION: US LIMITED COMPLETED DATE/TME: 09/07/2019 21:18 CLINICAL HISTORY: 28 years, Female, check fetus COMPARISON: 09/07/2019 ultrasound at 1308 p.m. TECHNIQUE: Limited OB ultrasound LIMITATIONS: None. FINDINGS: Single, live intrauterine gestation in the breech presentation. The placenta is posterior in location with a grade 1 echotexture. Heart tones obtained at 171 bpm. Cervical length 3.6 cm. Detailed anatomic assessment not performed. Anatomic fluid index subjectively normal, measures 15.4 cm IMPRESSION: Single, live IUP in the breech presentation as above. copyright 2010 [employer]- All Rights Reserved
[2019-09-08] MEDS ORDERED: DIPHENHYDRAMINE HCL 50 MG/ML VIAL IV ONE (01:29)
[2019-09-08] MEDS ORDERED: METOCLOPRAMIDE HCL INJ/PF 10 MG/2 ML SDV IV ONE (02:49)
[2019-09-08 03:08] VITALS: BP 122/83
== END 2019-09-08 02:55 | disposition short-term general hospital (02) ==
LOC: ER 20:18
DX: O99.612 Diseases of the digestive system complicating pregnancy, second trimester (principal); K35.80 Unspecified acute appendicitis; O21.9 Vomiting of pregnancy, unspecified; O99.89 Other specified diseases and conditions complicating pregnancy, childbirth and the puerperium; R10.31 Right lower quadrant pain; R10.10 Upper abdominal pain, unspecified; R19.7 Diarrhea, unspecified; R68.83 Chills (without fever); R20.0 Anesthesia of skin; O26.892 Other specified pregnancy related conditions, second trimester; M54.9 Dorsalgia, unspecified; Z3A.26 26 weeks gestation of pregnancy; Z79.899 Other long term (current) drug therapy
CPT/HCPCS: 36415; 83690; 87070; 81001; 76705; 76815; 74177; J1200; J2765 ×2; J1170 ×2; J2405; J7120; J2543